=== PATIENT | male | born 1965 | race African-American/Black ===

== ENCOUNTER 2024-06-05 21:34 | Emergency (ER) | payer MEDICAID, OTHER ==
[~2024-06-05] VITALS: Ht 170.2 cm; Wt 83.0 kg
[~2024-06-05 21:34] MED LIST: DIVA500T3; ZIPR60CA2
[2024-06-05 21:40] VITALS: O2SAT 95
[2024-06-05] MEDS: SULFAMETHOXAZOLE/TRIMETHOPRIM 800/160MG TABLET PO ONE (23:45)
[2024-06-06] MEDS ORDERED: CEPH500C2 MT (00:06)
[2024-06-06] MEDS ORDERED: SULF1TAB48 MT (00:06)
[2024-06-06] MEDS ORDERED: IBUP-2029 MT (00:06)
[2024-06-06 00:21] VITALS: BP 110/61; PULSE 72; RESP 18; TEMP 36.83628; O2SAT 97
[2024-06-06] MEDS: IBUPROFEN 600MG TABLET PO ONE (00:21)
[2024-06-06] MEDS: CEPHALEXIN 250MG CAPSULE PO ONE (00:21)
== END 2024-06-06 00:28 | disposition home or self-care (01) ==
LOC: ER 21:34
DX: S81.002A Unspecified open wound, left knee, initial encounter (principal); L03.116 Cellulitis of left lower limb; Z79.899 Other long term (current) drug therapy; W57.XXXA Bitten or stung by nonvenomous insect and other nonvenomous arthropods, initial encounter; Y93.89 Activity, other specified; Y92.89 Other specified places as the place of occurrence of the external cause; Y99.8 Other external cause status
CPT/HCPCS: 99284